=== PATIENT | male | born 1990 | race Caucasian/White ===

== ENCOUNTER 2018-05-16 10:52 | Emergency (ER) | payer OTHER ==
[2018-05-16] MEDS ORDERED: Sodium Chloride 0.9% 2.5 ML Syringe FLUSH PRN (11:03)
[2018-05-16] MEDS ORDERED: Sodium Chloride 0.9% 10 ML Syringe FLUSH PRN (11:03)
[2018-05-16] MEDS ORDERED: Naloxone 0.4 MG/ML Syringe IVPUSH ONE (11:06)
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
[2018-05-16] MEDS ORDERED: Naloxone 0.4 MG/ML Syringe ONE (11:07)
[2018-05-16 11:57] LABS: CHLORIDE,CL 107 mmol/L (98-107); SODIUM,NA 143 mmol/L (136-148)
--- NOTE | 2018-05-16 12:24 | CT ---
EXAMINATION: Non contrast CT head. Coronal and sagittal reformats. HISTORY: Pain FINDINGS: No evidence of intra or extra axial hemorrhage, mass, midline shift, hydrocephalus or edema. No hypoattenuation changes in the major vascular territories to suggest acute infarct. No abnormal intracranial calcifications are detected. No evidence of substantial vascular calcificat ions. Paranasal sinuses and mastoid air cells are well aerated without substantial findings. Orbits and gl obes are symmetric. Pituitary fossa appears unremarkable. Calvarium is intact. No evidence of skull fracture. IMPRESSION: No acute intracranial findings.
== END 2018-05-16 13:40 | disposition home or self-care (01) ==
LOC: MW.ED 10:52
DX: R41.82 Altered mental status, unspecified (principal); T41.295A Adverse effect of other general anesthetics, initial encounter; Z88.6 Allergy status to analgesic agent; Z79.899 Other long term (current) drug therapy
CPT/HCPCS: 36415; 70450; 80053; 80305; 85025; 93005; 99285; G0480